=== PATIENT | male | born 1950 | race Caucasian/White ===

== ENCOUNTER 2025-04-25 14:19 | Inpatient (IN) | payer MEDICARE, MEDICAID ==
[~2025-04-25] VITALS: Ht 172.7 cm; Wt 87.3 kg
[~2025-04-25 14:19] MED LIST: GABA300S4 PO; PHEN100C12 PO; PRAV40TA58 MT; TAMS-54 PO; ZONI100C45 PO
[2025-04-25 15:36] LABS: DIFFERENTIAL COMMENT 1; MEAN CORPUSCULAR HEMOGLOBIN 30.7 pg (28.0-32.0); MEAN CORPUSCULAR HGB CONC 33.3 g/dL (31.0-37.0); MEAN PLATELET VOLUME 8.3 fl (7.4-10.4); PLATELET 178 x1000/uL (130-400); RED BLOOD CELL COUNT 3.92 mill/uL (4.7-6.1); RED CELL DISTRIBUTION WIDTH 15.2 % (11.6-14.6); WHITE BLOOD COUNT 8.3 x1000/uL (4.5-11.0)
[2025-04-25 15:48] LABS: CHLORIDE 107 mEq/L (98-107); POTASSIUM 4.4 mEq/L (3.5-5.1); SODIUM 135 mEq/L (136-145)
[2025-04-25 15:49] LABS: CARBON DIOXIDE 24 mEq/L (21-32)
[2025-04-25 15:50] LABS: CALCIUM 8.9 mg/dL (8.7-10.4); PLATELET ESTIMATE NORMAL
[2025-04-25 15:54] LABS: CREATININE 0.9 mg/dL (0.6-1.3); GLUCOSE 117 mg/dL (70-105)
[2025-04-25 15:55] LABS: TROPONIN I HIGH SENSITIVITY 6 ng/L (3.0-53); UREA NITROGEN BLOOD 18 mg/dL (9-23)
[2025-04-25 15:56] LABS: ALANINE AMINOTRANSFERASE 11 IU/L (10-49); ALBUMIN 4.2 g/dL (3.2-4.8); ASPARTATE AMINOTRANSFERASE 22 IU/L (<34)
[2025-04-25 15:57] LABS: BILIRUBIN TOTAL 0.4 mg/dL (0.1-1.0); PROTEIN TOTAL 7.2 g/dL (6.0-8.3)
[2025-04-25 16:00] LABS: PHENYTOIN 26.2 ug/mL (10-20)
[2025-04-25] MEDS ORDERED: CLONIDINE 0.1MG TABLET PO PRN (18:15)
[2025-04-25] MEDS ORDERED: ONDANSETRON HCL 4MG/2ML INJ IV PRN (18:15)
[2025-04-25] MEDS ORDERED: LORAZEPAM 2MG/ML INJ IV PRN (18:15)
[2025-04-25] MEDS ORDERED: ZOLPIDEM TARTRATE 5MG TABLET PO PRN (18:15)
[2025-04-25 18:26] VITALS: PULSE 77; RESP 18; TEMP 97.1
[2025-04-25] MEDS ORDERED: IPRATROPIUM/ALBUTEROL 0.5-3(2.5)MG/3ML NEB NEB PRN (18:40)
[2025-04-25] MEDS ORDERED: HYDROCODONE/ACETAMINOPHEN 5/325MG TABLET PO PRN (18:41)
[2025-04-25 18:56] LABS: CLARITY URINE CLEAR (CLEAR); COLOR URINE YELLOW (YELLOW); GLUCOSE URINE NEGATIVE (NEGATIVE); KETONES URINE NEGATIVE (NEGATIVE); LEUKOCYTE ESTERASE URINE NEGATIVE (NEGATIVE); NITRITE URINE NEGATIVE (NEGATIVE); OCCULT BLOOD URINE NEGATIVE (NEGATIVE); PH URINE 8.5 (4.5-8.0); PROTEIN URINE NEGATIVE (NEGATIVE); SPECIFIC GRAVITY URINE 1.016 (1.005-1.030)
[2025-04-25 19:23] LABS: *AMPHETAMINES SCREEN URINE NEGATIVE (NEGATIVE); *BARBITURATES SCREEN URINE NEGATIVE (NEGATIVE); *BENZODIAZEPINES SCREEN URINE NEGATIVE (NEGATIVE)
[2025-04-25 19:24] LABS: *COCAINE SCREEN URINE NEGATIVE (NEGATIVE); CANNABINOID URINE SCREEN NEGATIVE (NEGATIVE); ECSTASY MDMA SCREEN URINE NEGATIVE (NEGATIVE); METHADONE URINE SCREEN NEGATIVE (NEGATIVE); OPIATES URINE SCREEN NEGATIVE (NEGATIVE); PHENCYCLIDINE URINE SCREEN NEGATIVE (NEGATIVE)
[2025-04-25] MEDS: SODIUM CHLORIDE 0.9% 1,000 ML IV SCH (20:31)
[2025-04-25] MEDS: GABAPENTIN 300MG CAPSULE PO SCH (22:00)
[2025-04-25] MEDS: ATORVASTATIN CALCIUM 20MG TABLET PO SCH (22:00)
[2025-04-25 22:19] VITALS: BP 139/57; PULSE 77; RESP 20; TEMP 36.2
[2025-04-25 23:54] LABS: TROPONIN I HIGH SENSITIVITY 10 ng/L (3.0-53)
[2025-04-26] VITALS: BP 134/73; PULSE 79; RESP 19; TEMP 36.2; O2SAT 95
[2025-04-26 04:00] VITALS: BP 128/71; PULSE 80; RESP 19; TEMP 36.3; O2SAT 97
[2025-04-26 06:54] LABS: HEMATOCRIT. 34.7 % (42.0-52.0); HEMOGLOBIN. 11.9 g/dL (14.0-18.0); MEAN CORPUSCULAR HEMOGLOBIN 30.9 pg (28.0-32.0); MEAN CORPUSCULAR HGB CONC 34.2 g/dL (31.0-37.0); MEAN CORPUSCULAR VOLUME 90.3 fL (80.0-94.0); MEAN PLATELET VOLUME 9.1 fl (7.4-10.4); PLATELET 156 x1000/uL (130-400); RED BLOOD CELL COUNT 3.84 mill/uL (4.7-6.1); RED CELL DISTRIBUTION WIDTH 14.8 % (11.6-14.6); WHITE BLOOD COUNT 5.7 x1000/uL (4.5-11.0)
[2025-04-26 07:05] LABS: DIFFERENTIAL COMMENT 1
[2025-04-26 07:09] LABS: CARBON DIOXIDE 22 mEq/L (21-32); CHLORIDE 107 mEq/L (98-107); POTASSIUM 4.1 mEq/L (3.5-5.1); SODIUM 133 mEq/L (136-145)
[2025-04-26 07:11] LABS: CALCIUM 8.6 mg/dL (8.7-10.4)
[2025-04-26 07:13] LABS: TROPONIN I HIGH SENSITIVITY 13 ng/L (3.0-53)
[2025-04-26 07:15] LABS: CREATININE 0.7 mg/dL (0.6-1.3); GLUCOSE 98 mg/dL (70-105); PHENYTOIN 23.4 ug/mL (10-20)
[2025-04-26 07:16] LABS: UREA NITROGEN BLOOD 16 mg/dL (9-23)
[2025-04-26 08:00] VITALS: BP 155/68; PULSE 73; RESP 20; TEMP 36.4; O2SAT 96
[2025-04-26] MEDS: PANTOPRAZOLE SODIUM 40 MG/VIAL IV SCH (08:52)
[2025-04-26] MEDS: ZONISAMIDE 100MG CAPSULE PO SCH (08:52)
[2025-04-26] MEDS: ACETAMINOPHEN 325MG TABLET PO PRN (08:52)
[2025-04-26] MEDS: TAMSULOSIN HCL 0.4MG SR CAPSULE PO SCH (08:52)
[2025-04-26] MEDS: ENOXAPARIN 40MG/0.4ML SYR SUBCUT SCH (08:53)
[2025-04-26 12:16] VITALS: BP 155/71; PULSE 82; RESP 18; TEMP 37.1; O2SAT 98
[2025-04-26 14:58] LABS: PLATELET ESTIMATE NORMAL
[2025-04-26 16:18] VITALS: BP 136/51; PULSE 81; RESP 20; TEMP 37.1; O2SAT 98
[2025-04-26 20:00] VITALS: BP 138/62; PULSE 82; RESP 20; TEMP 37.1; O2SAT 97
[2025-04-27] VITALS (7 sets, daily range): BP systolic 130–156; BP diastolic 56–99; PULSE 69–86; RESP 18–20; TEMP 36.2–37.3; O2SAT 95–99
[2025-04-27] MEDS: LORAZEPAM 2MG/ML UD SYRINGE IV PRN (05:34)
[2025-04-27 06:52] LABS: CHLORIDE 105 mEq/L (98-107); HEMATOCRIT. 35.3 % (42.0-52.0); MEAN CORPUSCULAR HEMOGLOBIN 30.9 pg (28.0-32.0); MEAN CORPUSCULAR HGB CONC 34.1 g/dL (31.0-37.0); MEAN CORPUSCULAR VOLUME 90.6 fL (80.0-94.0); MEAN PLATELET VOLUME 8.8 fl (7.4-10.4); PLATELET 156 x1000/uL (130-400); POTASSIUM 3.8 mEq/L (3.5-5.1); RED CELL DISTRIBUTION WIDTH 14.4 % (11.6-14.6); SODIUM 132 mEq/L (136-145); WHITE BLOOD COUNT 5.5 x1000/uL (4.5-11.0)
[2025-04-27 06:53] LABS: CALCIUM 8.3 mg/dL (8.7-10.4); CARBON DIOXIDE 20 mEq/L (21-32)
[2025-04-27 06:58] LABS: CREATININE 0.7 mg/dL (0.6-1.3); GLUCOSE 114 mg/dL (70-105); PHENYTOIN 17.7 ug/mL (10-20); UREA NITROGEN BLOOD 14 mg/dL (9-23)
[2025-04-27 07:07] LABS: DIFFERENTIAL COMMENT 1
[2025-04-27 11:15] LABS: PLATELET ESTIMATE NORMAL
[2025-04-27] MEDS ORDERED: KEPP500 MT (15:17)
[2025-04-28] VITALS: BP 143/67; PULSE 78; RESP 20; TEMP 37.2; O2SAT 98
[2025-04-28 03:47] VITALS: BP 131/60; PULSE 78; RESP 18; TEMP 37.1; O2SAT 95
[2025-04-28 07:12] LABS: CARBON DIOXIDE 20 mEq/L (21-32); CHLORIDE 106 mEq/L (98-107); POTASSIUM 3.6 mEq/L (3.5-5.1); SODIUM 132 mEq/L (136-145)
[2025-04-28 07:13] LABS: CALCIUM 8.2 mg/dL (8.7-10.4)
[2025-04-28 07:16] LABS: PHENYTOIN 11.9 ug/mL (10-20)
[2025-04-28 07:17] LABS: CREATININE 0.7 mg/dL (0.6-1.3)
[2025-04-28 07:18] LABS: GLUCOSE 97 mg/dL (70-105); UREA NITROGEN BLOOD 14 mg/dL (9-23)
[2025-04-28 07:25] LABS: HEMATOCRIT. 34.5 % (42.0-52.0); HEMOGLOBIN. 11.8 g/dL (14.0-18.0); MEAN CORPUSCULAR HEMOGLOBIN 30.7 pg (28.0-32.0); MEAN CORPUSCULAR HGB CONC 34.3 g/dL (31.0-37.0); MEAN CORPUSCULAR VOLUME 89.7 fL (80.0-94.0); MEAN PLATELET VOLUME 8.9 fl (7.4-10.4); PLATELET 154 x1000/uL (130-400); RED BLOOD CELL COUNT 3.84 mill/uL (4.7-6.1); WHITE BLOOD COUNT 5.4 x1000/uL (4.5-11.0)
[2025-04-28 08:00] VITALS: BP 144/68; PULSE 68; RESP 15; TEMP 36.2; O2SAT 95
[2025-04-28 08:23] LABS: DIFFERENTIAL COMMENT 1
[2025-04-28 12:00] VITALS: BP 127/61; PULSE 66; RESP 13; TEMP 36.3; O2SAT 97
[2025-04-28 16:00] VITALS: BP 138/64; PULSE 70; RESP 16; TEMP 36.3; O2SAT 97
[2025-04-28 16:11] LABS: GIANT PLATELETS FEW; PLATELET ESTIMATE NORMAL
[2025-04-28 20:00] VITALS: BP 141/66; PULSE 74; RESP 18; TEMP 36.5; O2SAT 97
[2025-04-28] MEDS ORDERED: NALOXONE HCL 0.4MG/ML VIAL IV PRN (21:15)
[2025-04-29] VITALS: BP 140/64; PULSE 73; RESP 18; TEMP 36.5; O2SAT 97
[2025-04-29 04:00] VITALS: BP 135/59; PULSE 68; RESP 18; TEMP 36.6; O2SAT 98
[2025-04-29 08:00] VITALS: BP 144/64; PULSE 63; RESP 18; TEMP 36.2; O2SAT 97
[2025-04-29] MEDS: FAMOTIDINE 20MG/2ML VIAL IV SCH (09:09)
[2025-04-29 12:00] VITALS: BP 134/65; PULSE 62; RESP 18; TEMP 37; O2SAT 96
[2025-04-29 16:00] VITALS: BP 121/54; PULSE 63; RESP 20; TEMP 36.4; O2SAT 95
== END 2025-04-29 18:15 | DRG 101 ==
LOC: ER 14:29 → ENRESERV 18:31 → 7WST 20:58
PROVIDERS: ADMIT Internal Medicine; ATTEND Internal Medicine
DX: G40.909 Epilepsy, unspecified, not intractable, without status epilepticus (principal); E87.1 Hypo-osmolality and hyponatremia; I10 Essential (primary) hypertension; T42.0X5A Adverse effect of hydantoin derivatives, initial encounter; E78.00 Pure hypercholesterolemia, unspecified; F03.90 Unspecified dementia, unspecified severity, without behavioral disturbance, psychotic disturbance, mood disturbance, and anxiety; R32 Unspecified urinary incontinence; F41.9 Anxiety disorder, unspecified; Y92.89 Other specified places as the place of occurrence of the external cause; Z86.73 Personal history of transient ischemic attack (TIA), and cerebral infarction without residual deficits
CPT/HCPCS: 36415; 71045; 80048; 80053; 80185; 80305; 81003; 82542; 84484; 85025; 93005; 93306; 93970; 97163; 99285; J1308; J1650; J2060; J2470